=== PATIENT | male | born 1995 | race Caucasian/White ===

== ENCOUNTER 2016-05-31 12:32 | Emergency (ER) | payer OTHER ==
[~2016-05-31] VITALS: Ht 172.7 cm; Wt 59.0 kg
[~2016-05-31 12:32] MED LIST: ACETAMINOPHEN-1 EAC1 PO
[2016-05-31 13:08] LABS: HEMATOCRIT 46.4 % (42.0-52.0); HEMOGLOBIN 15.8 gm/dL (14.0-18.0); MCH 30.3 pg (26.0-34.0); MCV 89.3 fL (80.0-100.0); PLATELET COUNT 242 thou/uL (150-400); RDW 12.8 % (10.5-14.5); WBC 14.8 thou/uL (4.0-11.0)
[2016-05-31 13:11] LABS: MANUAL DIFF YES
[2016-05-31 13:16] LABS: CALCIUM 10.1 mg/dL (8.5-10.1); POTASSIUM 4.2 mmol/L (3.5-5.1)
[2016-05-31 13:37] LABS: ABSOLUTE NEUTROPHILS 12.7 thou/uL (1.4-8.2); TOTAL CELL COUNT 100
[2016-05-31 14:09] LABS: URINE BLOOD TRACE (Negative); URINE COLOR YELLOW; URINE GLUCOSE-RANDOM* NEGATIVE (Negative); URINE KETONES 3+ (Negative); URINE NITRITE NEGATIVE (Negative); URINE PROTEIN (DIPSTICK) TRACE (Negative); URINE SPECIFIC GRAVITY 1.025 (1.003-1.035)
[2016-05-31 14:14] LABS: URINE BILIRUBIN NEGATIVE (Negative)
[2016-05-31] MEDS ORDERED: ONDANSETRON HCL4 M2 PO (14:27)
[2016-05-31] MEDS ORDERED: IBUPROFEN 600600 M1 PO (14:27)
[2016-05-31] MEDS ORDERED: AMOXICILLIN500 M1 PO (14:27)
[2016-05-31 14:58] VITALS: BP 113/53
== END 2016-05-31 14:59 | disposition home or self-care (01) ==
LOC: ER 12:32
PROVIDERS: Nurse Practitioner
DX: J02.0 Streptococcal pharyngitis (principal); E86.0 Dehydration; R11.2 Nausea with vomiting, unspecified

== ENCOUNTER 2020-09-21 13:16 | Emergency (ER) | payer OTHER ==
[~2020-09-21] VITALS: Ht 177.8 cm; Wt 61.2 kg
[~2020-09-21 13:16] MED LIST changes: +AMOXICILLIN500 M1 PO; +IBUPROFEN 600600 M1 PO; +ONDANSETRON HCL4 M2 PO
[2020-09-21 13:34] LABS: URINE BLOOD TRACE (Negative); URINE CLARITY CLEAR; URINE COLOR YELLOW; URINE GLUCOSE-RANDOM* NEGATIVE (Negative); URINE KETONES 3+ (Negative); URINE LEUKOCYTES-REFLEX NEGATIVE (Negative); URINE NITRITE-REFLEX NEGATIVE (Negative); URINE PROTEIN (DIPSTICK) 1+ (Negative); URINE SPECIFIC GRAVITY 1.015 (1.005-1.035); URINE UROBILINOGEN >= 8.0 E.U./dl (0.2-1.0)
[2020-09-21 13:36] LABS: ICTOTEST (BILI CONFIRMATORY) Negative (Negative); URINE BILIRUBIN NEGATIVE (Negative)
[2020-09-21 13:47] LABS: MUCUS >6 Heavy strn/LPF (None Seen)
[2020-09-21 13:48] LABS: URINE RBC 1-2 Rare /HPF (NONE SEEN); URINE WBC-REFLEX 0-5 Rare /HPF (0-5)
[2020-09-21 13:49] LABS: BACTERIA-REFLEX 1-9 Few /HPF (None Seen); CASTS None Seen /LPF (None Seen); CRYSTALS None Seen /LPF (None Seen); SQUAMOUS None Seen /LPF (0-3)
[2020-09-21 13:49] LABS: ABSOLUTE NEUTROPHILS 6.8 thou/uL (1.4-8.2); BASOPHILS 0.4 % (0.0-2.0); EOSINOPHILS 0.5 % (0.0-3.0); HEMATOCRIT 50.3 % (42.0-52.0); HEMOGLOBIN 17.2 gm/dL (14.0-18.0); LYMPHOCYTES 15.2 % (24.0-44.0); MCHC 34.2 g/dL (28.0-37.0); MCV 90.6 fL (80.0-100.0); MONOCYTES 13.6 % (1.0-8.0); PLATELET COUNT 289 thou/uL (150-400); POLYS 70.3 % (36.0-66.0); RBC 5.55 mil/uL (4.50-6.00); RDW 12.8 % (10.5-14.5); WBC 9.7 thou/uL (4.0-11.0)
[2020-09-21 13:51] LABS: YEAST-REFLEX Present (None Seen)
[2020-09-21 13:52] LABS: AMP/METHAMP Negative (Negative); BARBITURATES Negative (Negative); BENZODIAZEPINES Negative (Negative); COCAINE Negative (Negative); METHADONE Negative (Negative); OPIATES Negative (Negative); PCP Negative (Negative)
[2020-09-21 13:55] LABS: CALCIUM 9.8 mg/dL (8.5-10.1); CREATININE 1.2 mg/dL (0.7-1.3)
[2020-09-21 14:01] LABS: ALBUMIN 4.6 g/dL (3.4-5.0); TOTAL BILIRUBIN 0.9 mg/dL (0.2-1.0); TOTAL PROTEIN 8.7 g/dL (6.4-8.2)
[2020-09-21 14:18] LABS: SALICYLATE < 2.8 mg/dL (2.8-20.0)
[2020-09-21] MEDS ORDERED: ZOFRAN ODT4 MG PO (17:02)
[2020-09-21 17:24] VITALS: BP 118/73
== END 2020-09-21 17:26 | disposition home or self-care (01) ==
LOC: ER 13:16
PROVIDERS: Physician Assistant
DX: J02.9 Acute pharyngitis, unspecified (principal); R11.2 Nausea with vomiting, unspecified

== ENCOUNTER 2021-02-03 16:17 | Emergency (ER) | payer OTHER ==
[~2021-02-03] VITALS: Ht 177.8 cm; Wt 63.5 kg
[~2021-02-03 16:17] MED LIST changes: +ZOFRAN ODT4 MG PO
[2021-02-03 16:46] LABS: URINE BILIRUBIN 1+ (Negative); URINE BLOOD 1+ (Negative); URINE CLARITY CLEAR; URINE COLOR YELLOW; URINE GLUCOSE-RANDOM* NEGATIVE (Negative); URINE KETONES 2+ (Negative); URINE LEUKOCYTES-REFLEX NEGATIVE (Negative); URINE NITRITE-REFLEX NEGATIVE (Negative); URINE PROTEIN (DIPSTICK) NEGATIVE (Negative); URINE SPECIFIC GRAVITY >= 1.030 (1.005-1.035)
[2021-02-03 17:01] LABS: BACTERIA-REFLEX None Seen /HPF (None Seen); CRYSTALS None Seen /LPF (None Seen); SQUAMOUS None Seen /LPF (0-3); URINE RBC 1-2 Rare /HPF (NONE SEEN); URINE WBC-REFLEX None Seen /HPF (0-5)
[2021-02-03 18:47] LABS: ABSOLUTE NEUTROPHILS 4.7 thou/uL (1.4-8.2); BASOPHILS 0.8 % (0.0-2.0); EOSINOPHILS 2.4 % (0.0-3.0); HEMATOCRIT 50.9 % (42.0-52.0); LYMPHOCYTES 22.1 % (24.0-44.0); MCH 30.2 pg (26.0-34.0); MCHC 33.4 g/dL (28.0-37.0); MCV 90.5 fL (80.0-100.0); MONOCYTES 10.8 % (1.0-8.0); PLATELET COUNT 280 thou/uL (150-400); POLYS 63.9 % (36.0-66.0); RBC 5.63 mil/uL (4.50-6.00); RDW 12.8 % (10.5-14.5); WBC 7.3 thou/uL (4.0-11.0)
[2021-02-03 18:56] LABS: CALCIUM 9.5 mg/dL (8.5-10.1); CREATININE 1.1 mg/dL (0.7-1.3); POTASSIUM 3.8 mmol/L (3.5-5.1)
[2021-02-03 19:02] LABS: ALBUMIN 4.3 g/dL (3.4-5.0); DIRECT BILIRUBIN 0.1 mg/dL (<0.1-0.2); TOTAL BILIRUBIN 0.7 mg/dL (0.2-1.0); TOTAL PROTEIN 8.1 g/dL (6.4-8.2)
[2021-02-03] MEDS ORDERED: ONDANSETRON HCL4 M2 PO (19:09)
[2021-02-03] MEDS ORDERED: METHYLPHENIDATE20 M3 PO (20:06)
[2021-02-03 20:22] VITALS: BP 129/80
== END 2021-02-03 20:23 | disposition home or self-care (01) ==
LOC: ER 16:17
PROVIDERS: Nurse Practitioner
DX: R11.2 Nausea with vomiting, unspecified (principal); Z79.899 Other long term (current) drug therapy; Z79.891 Long term (current) use of opiate analgesic